=== PATIENT | male | born 1990 | race Caucasian/White ===

== ENCOUNTER 2018-04-19 11:12 | Emergency (ER) | payer BC ==
[~2018-04-19] VITALS: Ht 172.7 cm; Wt 54.4 kg
[~2018-04-19 11:12] MED LIST: ANAPROX DS550 MG PO; MOTRIN800 MG PO; NAPROSYN500 MG PO; PENICILLIN VK500 MG PO; PENICILLIN-VK500 M1 PO; Peridex 473 ML473 ML PO
[2018-04-19 11:14] VITALS: BP 118/67
[2018-04-19] MEDS ORDERED: ZOFRAN4 MG PO (11:32)
[2018-04-19] MEDS ORDERED: SEPTDS PO (11:32)
[2018-04-19] MEDS ORDERED: KEFLEX500 M1 PO (11:32)
== END 2018-04-19 11:40 | disposition home or self-care (01) ==
LOC: ED 11:12
DX: L02.11 Cutaneous abscess of neck (principal); K21.9 Gastro-esophageal reflux disease without esophagitis; Z79.2 Long term (current) use of antibiotics; Z79.1 Long term (current) use of non-steroidal anti-inflammatories (NSAID); Z79.899 Other long term (current) drug therapy

== ENCOUNTER 2019-04-21 21:19 | Emergency (ER) | payer SELFPAY ==
[~2019-04-21] VITALS: Ht 172.7 cm; Wt 53.1 kg
[~2019-04-21 21:19] MED LIST changes: +KEFLEX500 M1 PO; +SEPTDS PO; +ZOFRAN4 MG PO
[2019-04-21 21:20] VITALS: BP 98/60
[2019-04-21] MEDS ORDERED: AMOXICILLIN500 M2 PO (22:42)
[2019-04-21] MEDS ORDERED: FLONASE ALLERG9.9 ML NAS (22:42)
== END 2019-04-21 23:09 | disposition home or self-care (01) ==
LOC: ED 21:19
DX: J32.9 Chronic sinusitis, unspecified (principal); F17.200 Nicotine dependence, unspecified, uncomplicated; Z79.2 Long term (current) use of antibiotics; Z79.899 Other long term (current) drug therapy